=== PATIENT | female | born 1980 | race Caucasian/White ===

== ENCOUNTER 2017-10-10 08:59 | Emergency (ER) | payer MEDICAID ==
[~2017-10-10] VITALS: Ht 172.7 cm; Wt 150.0 kg
[~2017-10-10 08:59] MED LIST: PRED20 PO; Z.0.NO CURRENT MEDS
[2017-10-10 09:05] VITALS: BP 121/70; PULSE 60; RESP 16; TEMP 98.1; O2SAT 100
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
== END 2017-10-10 11:08 | disposition home or self-care (01) ==
LOC: NEPD 08:59
DX: S82.142A Displaced bicondylar fracture of left tibia, initial encounter for closed fracture (principal); X58.XXXA Exposure to other specified factors, initial encounter; Y93.11 Activity, swimming
CPT/HCPCS: 73564; 73590; 99283; E0113; L1830